=== PATIENT | female | born 1965 | race Caucasian/White ===

== ENCOUNTER 2018-09-28 09:42 | Outpatient (CLI) | payer MEDICARE, MEDICAID | END 2018-09-28 23:59 | disposition home or self-care (01) | LOC: WOU 09:42 | PROVIDERS: ATTEND Surgery | DX: S51.012A Laceration without foreign body of left elbow, initial encounter (principal); W19.XXXA Unspecified fall, initial encounter; Y92.89 Other specified places as the place of occurrence of the external cause; J44.9 Chronic obstructive pulmonary disease, unspecified; Z88.3 Allergy status to other anti-infective agents; Z88.2 Allergy status to sulfonamides; G89.4 Chronic pain syndrome; R26.2 Difficulty in walking, not elsewhere classified; L85.3 Xerosis cutis; E66.9 Obesity, unspecified; Z68.35 Body mass index [BMI] 35.0-35.9, adult; I87.303 Chronic venous hypertension (idiopathic) without complications of bilateral lower extremity | CPT/HCPCS: 11042; A6402 ==

== ENCOUNTER 2018-10-05 12:30 | Outpatient (CLI) | payer MEDICARE, MEDICAID | END 2018-10-05 23:59 | disposition home health service (06) | LOC: WOU 12:30 | PROVIDERS: ATTEND Surgery | DX: S51.012D Laceration without foreign body of left elbow, subsequent encounter (principal); W19.XXXD Unspecified fall, subsequent encounter; J44.9 Chronic obstructive pulmonary disease, unspecified; Z86.718 Personal history of other venous thrombosis and embolism; L84 Corns and callosities; I87.303 Chronic venous hypertension (idiopathic) without complications of bilateral lower extremity; E66.9 Obesity, unspecified; Z68.35 Body mass index [BMI] 35.0-35.9, adult | CPT/HCPCS: G0463 ==

== ENCOUNTER 2018-10-26 12:10 | Outpatient (CLI) | payer MEDICARE, MEDICAID | END 2018-10-26 23:59 | disposition home health service (06) | LOC: WOU 12:10 | PROVIDERS: ATTEND Surgery | DX: S51.012D Laceration without foreign body of left elbow, subsequent encounter (principal); W19.XXXD Unspecified fall, subsequent encounter; Z88.2 Allergy status to sulfonamides; F17.210 Nicotine dependence, cigarettes, uncomplicated; G89.4 Chronic pain syndrome; E66.09 Other obesity due to excess calories; L85.3 Xerosis cutis | CPT/HCPCS: G0463 ==

== ENCOUNTER 2019-05-07 08:50 | Outpatient (CLI) | payer MEDICARE, MEDICAID | END 2019-05-07 23:59 | disposition home health service (06) | LOC: WOU 08:50 | PROVIDERS: ATTEND Surgery | DX: S51.012A Laceration without foreign body of left elbow, initial encounter (principal); W18.30XA Fall on same level, unspecified, initial encounter; Y92.89 Other specified places as the place of occurrence of the external cause; I87.2 Venous insufficiency (chronic) (peripheral); R60.0 Localized edema; F17.200 Nicotine dependence, unspecified, uncomplicated | CPT/HCPCS: 11042; J3490 ==

== ENCOUNTER 2019-05-28 09:00 | Outpatient (CLI) | payer MEDICARE, MEDICAID | END 2019-05-28 23:59 | disposition home health service (06) | LOC: WOU 09:00 | PROVIDERS: ATTEND Surgery | DX: S51.012A Laceration without foreign body of left elbow, initial encounter (principal); W19.XXXA Unspecified fall, initial encounter; Y92.89 Other specified places as the place of occurrence of the external cause; I87.2 Venous insufficiency (chronic) (peripheral); R60.0 Localized edema; E66.9 Obesity, unspecified; Z68.33 Body mass index [BMI] 33.0-33.9, adult; F17.210 Nicotine dependence, cigarettes, uncomplicated; Z79.899 Other long term (current) drug therapy | CPT/HCPCS: 11042 ==

== ENCOUNTER 2019-08-13 08:55 | Outpatient (CLI) | payer MEDICARE, MEDICAID | END 2019-08-13 23:59 | disposition home health service (06) | LOC: WOU 08:55 | PROVIDERS: ATTEND Surgery | DX: L84 Corns and callosities (principal); I87.303 Chronic venous hypertension (idiopathic) without complications of bilateral lower extremity; F17.210 Nicotine dependence, cigarettes, uncomplicated; E66.9 Obesity, unspecified; Z68.33 Body mass index [BMI] 33.0-33.9, adult; Z79.899 Other long term (current) drug therapy | CPT/HCPCS: G0463 ==

== ENCOUNTER 2020-02-28 13:00 | Outpatient (CLI) | payer MEDICARE, MEDICAID ==
[2020-02-28] MEDS ORDERED: BACI/NEOM/POLY B OINT PKT 1 UDPKT PACKET ONE (13:48)
== END 2020-02-28 23:59 | disposition home health service (06) ==
LOC: WOU 13:00
PROVIDERS: ATTEND Surgery
DX: S51.012A Laceration without foreign body of left elbow, initial encounter (principal); X58.XXXA Exposure to other specified factors, initial encounter; Y92.89 Other specified places as the place of occurrence of the external cause; I87.2 Venous insufficiency (chronic) (peripheral); R60.0 Localized edema; E66.9 Obesity, unspecified; Z68.33 Body mass index [BMI] 33.0-33.9, adult; Z72.0 Tobacco use
CPT/HCPCS: 11042; 11045

== ENCOUNTER 2020-07-24 10:14 | Outpatient (CLI) | payer MEDICARE, MEDICAID ==
[2020-07-24 11:26] LABS: BILIRUBIN,URINE NEGATIVE (NEGATIVE); COLOR,URINE YELLOW (YELLOW); LEUKOCYTE ESTERASE ,URINE NEGATIVE (NEGATIVE); NITRITE, URINE NEGATIVE (NEGATIVE); PH,URINE 6.5 (5.0-8.0); PROTEIN,URINE NEGATIVE (NEGATIVE); UGLUCOSE NEGATIVE (NEGATIVE); UROBILINOGEN,URINE 0.2 EU/dL (0.2)
[2020-07-24 11:31] LABS: ALBUMIN 3.9 g/dL (3.4-5.0); BILIRUBIN,TOTAL 0.3 mg/dL (0.2-1.0); CALCIUM, SERUM 9.2 mg/dL (8.5-10.1); CREATININE 0.8 mg/dL (0.6-1.3); PHOSPHORUS 4.3 mg/dL (2.5-4.9); POTASSIUM 3.5 mmol/L (3.5-5.1); TOTAL PROTEIN, SERUM 7.3 g/dL (6.4-8.2)
[2020-07-24 11:37] LABS: BASOPHILS # (AUTO) 0.1 /CMM (0.0-0.2); BASOPHILS % (AUTO) 0.7 % (0.0-2.0); EOSINOPHILS % (AUTO) 2.8 % (0.0-6.0); HEMATOCRIT 41 % (33-45); HEMOGLOBIN 13.7 g/dL (11.5-14.8); LYMPHOCYTES # (AUTO) 2.8 /CMM (0.8-4.8); MEAN CORPUSCULAR HGB CONC 34 g/dl (31.0-36.0); MEAN CORPUSCULAR VOLUME 96 fL (82-100); MONOCYTES # (AUTO) 0.8 /CMM (0.1-1.30); MONOCYTES % (AUTO) 9.6 % (2.0-12.0); NEUTROPHILS # (AUTO) 4.4 /CMM (1.8-8.9); NEUTROPHILS % (AUTO) 52.9 % (43.0-81.0); PLATELET COUNT (AUTO) 269 /CMM (150-450); RED BLOOD CELL COUNT(AUTO) 4.22 MIL/uL (4.0-5.2); WHITE BLOOD COUNT (AUTO) 8.3 K/uL (4.3-11.0)
[2020-07-24 11:54] LABS: BACTERIA,URINE None seen /HPF (None Seen); RBC,URINE 0-2 /HPF (0-2); WBC,URINE NONE SEEN /HPF (0-3)
[2020-07-24 11:55] LABS: SQUAMOUS EPITHELIAL CELL,UR Few /HPF (None Seen)
== END 2020-07-24 23:59 | disposition home or self-care (01) ==
LOC: MSC 10:14
PROVIDERS: ATTEND Internal Medicine
DX: R22.43 Localized swelling, mass and lump, lower limb, bilateral (principal); J44.1 Chronic obstructive pulmonary disease with (acute) exacerbation; Z72.0 Tobacco use; R39.15 Urgency of urination; I87.2 Venous insufficiency (chronic) (peripheral); I10 Essential (primary) hypertension; K21.00 Gastro-esophageal reflux disease with esophagitis, without bleeding; M25.9 Joint disorder, unspecified; F43.12 Post-traumatic stress disorder, chronic; K59.00 Constipation, unspecified; Z79.891 Long term (current) use of opiate analgesic; Z79.52 Long term (current) use of systemic steroids; Z79.899 Other long term (current) drug therapy
CPT/HCPCS: 36415; 80053; 81001; 82043; 82570; 82607; 83036; 83735; 84100; 84155; 85025; G0463

== ENCOUNTER 2020-08-12 10:06 | Outpatient (CLI) | payer MEDICARE, MEDICAID | END 2020-08-12 23:59 | disposition home or self-care (01) | LOC: MSC 10:06 | PROVIDERS: ATTEND Internal Medicine | DX: J02.9 Acute pharyngitis, unspecified (principal); J44.1 Chronic obstructive pulmonary disease with (acute) exacerbation; Z79.51 Long term (current) use of inhaled steroids; Z79.52 Long term (current) use of systemic steroids; Z72.0 Tobacco use; R22.43 Localized swelling, mass and lump, lower limb, bilateral; I10 Essential (primary) hypertension; I87.2 Venous insufficiency (chronic) (peripheral); G89.4 Chronic pain syndrome; F43.12 Post-traumatic stress disorder, chronic; M25.9 Joint disorder, unspecified; K21.00 Gastro-esophageal reflux disease with esophagitis, without bleeding; F89 Unspecified disorder of psychological development; K59.00 Constipation, unspecified; R39.15 Urgency of urination; Z79.891 Long term (current) use of opiate analgesic ==

== ENCOUNTER 2020-08-26 11:14 | Outpatient (CLI) | payer MEDICARE, OTHER | END 2020-08-26 23:59 | disposition home or self-care (01) | LOC: MSC 11:14 | PROVIDERS: ATTEND Internal Medicine | DX: I10 Essential (primary) hypertension (principal); J02.9 Acute pharyngitis, unspecified; J44.1 Chronic obstructive pulmonary disease with (acute) exacerbation; Z72.0 Tobacco use; I87.2 Venous insufficiency (chronic) (peripheral); G89.4 Chronic pain syndrome; F43.12 Post-traumatic stress disorder, chronic; M25.9 Joint disorder, unspecified; K21.00 Gastro-esophageal reflux disease with esophagitis, without bleeding; F89 Unspecified disorder of psychological development; K59.00 Constipation, unspecified; R39.15 Urgency of urination; Z79.2 Long term (current) use of antibiotics; Z79.52 Long term (current) use of systemic steroids; Z79.51 Long term (current) use of inhaled steroids; Z79.891 Long term (current) use of opiate analgesic; Z79.899 Other long term (current) drug therapy ==

== ENCOUNTER 2021-03-03 11:30 | Outpatient (CLI) | payer MEDICARE, OTHER | END 2021-03-03 23:59 | disposition home or self-care (01) | LOC: MSC 11:30 | PROVIDERS: ATTEND Internal Medicine | DX: R60.0 Localized edema (principal); I10 Essential (primary) hypertension; I87.2 Venous insufficiency (chronic) (peripheral); J44.1 Chronic obstructive pulmonary disease with (acute) exacerbation; G89.4 Chronic pain syndrome; F43.12 Post-traumatic stress disorder, chronic; M25.9 Joint disorder, unspecified; K21.00 Gastro-esophageal reflux disease with esophagitis, without bleeding; F89 Unspecified disorder of psychological development; K59.00 Constipation, unspecified; R39.15 Urgency of urination; Z79.891 Long term (current) use of opiate analgesic; Z79.52 Long term (current) use of systemic steroids; Z79.899 Other long term (current) drug therapy ==

== ENCOUNTER → 2021-05-26 | Outpatient (CLI) | payer MEDICARE, OTHER | END | disposition home or self-care (01) | LOC: MSC 12:00 | PROVIDERS: ATTEND Internal Medicine | DX: R68.89 Other general symptoms and signs (principal); R60.0 Localized edema; I10 Essential (primary) hypertension; I87.2 Venous insufficiency (chronic) (peripheral); J44.1 Chronic obstructive pulmonary disease with (acute) exacerbation; Z79.52 Long term (current) use of systemic steroids; G89.4 Chronic pain syndrome; M25.9 Joint disorder, unspecified; Z79.891 Long term (current) use of opiate analgesic; F43.12 Post-traumatic stress disorder, chronic; K21.9 Gastro-esophageal reflux disease without esophagitis; F89 Unspecified disorder of psychological development; K59.00 Constipation, unspecified; R39.15 Urgency of urination; Z79.899 Other long term (current) drug therapy ==

== ENCOUNTER → 2021-06-01 | Outpatient (CLI) | payer MEDICARE, OTHER | END | disposition home or self-care (01) | LOC: MSC 11:00 | PROVIDERS: ATTEND Internal Medicine | DX: J44.1 Chronic obstructive pulmonary disease with (acute) exacerbation (principal); Z79.51 Long term (current) use of inhaled steroids; I10 Essential (primary) hypertension; I87.2 Venous insufficiency (chronic) (peripheral); G89.4 Chronic pain syndrome; Z79.891 Long term (current) use of opiate analgesic; F43.12 Post-traumatic stress disorder, chronic; M25.9 Joint disorder, unspecified; K21.00 Gastro-esophageal reflux disease with esophagitis, without bleeding; F89 Unspecified disorder of psychological development; K59.00 Constipation, unspecified; R39.15 Urgency of urination; Z79.899 Other long term (current) drug therapy ==

== ENCOUNTER 2021-06-08 13:00 | Outpatient (CLI) | payer MEDICARE, OTHER | END 2021-06-08 23:59 | disposition home or self-care (01) | LOC: MSC 13:00 | PROVIDERS: ATTEND Internal Medicine | DX: J44.1 Chronic obstructive pulmonary disease with (acute) exacerbation (principal); Z79.51 Long term (current) use of inhaled steroids; Z79.52 Long term (current) use of systemic steroids; R68.83 Chills (without fever); R60.0 Localized edema; I10 Essential (primary) hypertension; I87.2 Venous insufficiency (chronic) (peripheral); G89.4 Chronic pain syndrome; Z79.891 Long term (current) use of opiate analgesic; F43.12 Post-traumatic stress disorder, chronic; M25.9 Joint disorder, unspecified; K21.00 Gastro-esophageal reflux disease with esophagitis, without bleeding; F89 Unspecified disorder of psychological development; K59.00 Constipation, unspecified; R39.15 Urgency of urination; Z79.899 Other long term (current) drug therapy ==

== ENCOUNTER → 2021-06-17 | Outpatient (CLI) | payer MEDICARE, OTHER | END | disposition home or self-care (01) | LOC: MSC 14:30 | PROVIDERS: ATTEND Internal Medicine | DX: J44.1 Chronic obstructive pulmonary disease with (acute) exacerbation (principal); Z79.51 Long term (current) use of inhaled steroids; Z79.52 Long term (current) use of systemic steroids; R60.0 Localized edema; I10 Essential (primary) hypertension; I87.2 Venous insufficiency (chronic) (peripheral); G89.4 Chronic pain syndrome; M25.9 Joint disorder, unspecified; Z79.891 Long term (current) use of opiate analgesic; F43.12 Post-traumatic stress disorder, chronic; K21.00 Gastro-esophageal reflux disease with esophagitis, without bleeding; F89 Unspecified disorder of psychological development; K59.00 Constipation, unspecified; R39.15 Urgency of urination; Z79.899 Other long term (current) drug therapy ==

== ENCOUNTER 2021-07-01 15:00 | Outpatient (CLI) | payer MEDICARE, OTHER | END 2021-07-01 23:59 | disposition home or self-care (01) | LOC: MSC 15:00 | PROVIDERS: ATTEND Internal Medicine | DX: J44.1 Chronic obstructive pulmonary disease with (acute) exacerbation (principal); Z79.51 Long term (current) use of inhaled steroids; Z79.52 Long term (current) use of systemic steroids; I10 Essential (primary) hypertension; I87.2 Venous insufficiency (chronic) (peripheral); G89.4 Chronic pain syndrome; M25.9 Joint disorder, unspecified; Z79.891 Long term (current) use of opiate analgesic; F43.12 Post-traumatic stress disorder, chronic; K21.00 Gastro-esophageal reflux disease with esophagitis, without bleeding; F89 Unspecified disorder of psychological development; K59.00 Constipation, unspecified; R39.15 Urgency of urination; Z79.899 Other long term (current) drug therapy ==

== ENCOUNTER 2021-07-17 14:00 | Outpatient (CLI) | payer MEDICARE, OTHER | END 2021-07-17 23:59 | disposition home or self-care (01) | LOC: MSC 14:00 | PROVIDERS: ATTEND Internal Medicine | DX: J44.1 Chronic obstructive pulmonary disease with (acute) exacerbation (principal); J45.901 Unspecified asthma with (acute) exacerbation; Z79.51 Long term (current) use of inhaled steroids; Z79.52 Long term (current) use of systemic steroids; I10 Essential (primary) hypertension; I87.2 Venous insufficiency (chronic) (peripheral); G89.4 Chronic pain syndrome; F43.12 Post-traumatic stress disorder, chronic; M25.9 Joint disorder, unspecified; Z79.891 Long term (current) use of opiate analgesic; K21.00 Gastro-esophageal reflux disease with esophagitis, without bleeding; F89 Unspecified disorder of psychological development; K59.00 Constipation, unspecified; R39.15 Urgency of urination; Z79.899 Other long term (current) drug therapy ==

== ENCOUNTER → 2021-08-18 | Outpatient (CLI) | payer MEDICARE, OTHER | END | disposition home or self-care (01) | LOC: MSC 11:30 | PROVIDERS: ATTEND Internal Medicine | DX: J44.1 Chronic obstructive pulmonary disease with (acute) exacerbation (principal); J45.901 Unspecified asthma with (acute) exacerbation; Z79.51 Long term (current) use of inhaled steroids; Z79.52 Long term (current) use of systemic steroids; I10 Essential (primary) hypertension; I87.2 Venous insufficiency (chronic) (peripheral); G89.4 Chronic pain syndrome; F43.12 Post-traumatic stress disorder, chronic; M25.9 Joint disorder, unspecified; K21.00 Gastro-esophageal reflux disease with esophagitis, without bleeding; F89 Unspecified disorder of psychological development; K59.00 Constipation, unspecified; R39.15 Urgency of urination; Z79.899 Other long term (current) drug therapy ==

== ENCOUNTER → 2021-09-30 | Outpatient (CLI) | payer MEDICARE, OTHER | END | disposition home or self-care (01) | LOC: MSC 14:30 | PROVIDERS: ATTEND Internal Medicine | DX: J44.1 Chronic obstructive pulmonary disease with (acute) exacerbation (principal); J45.901 Unspecified asthma with (acute) exacerbation; I10 Essential (primary) hypertension; I87.2 Venous insufficiency (chronic) (peripheral); G89.4 Chronic pain syndrome; F43.12 Post-traumatic stress disorder, chronic; M25.9 Joint disorder, unspecified; K21.00 Gastro-esophageal reflux disease with esophagitis, without bleeding; F89 Unspecified disorder of psychological development; K59.00 Constipation, unspecified; R39.15 Urgency of urination; Z79.899 Other long term (current) drug therapy ==

== ENCOUNTER 2021-10-13 09:07 | Outpatient (CLI) | payer MEDICARE, OTHER | END 2021-10-13 23:59 | disposition home or self-care (01) | LOC: MSC 09:07 | PROVIDERS: ATTEND Anesthesiology | DX: G89.4 Chronic pain syndrome (principal); M54.50 Low back pain, unspecified; F11.20 Opioid dependence, uncomplicated; M79.606 Pain in leg, unspecified ==

== ENCOUNTER → 2021-10-15 | Outpatient (CLI) | payer MEDICARE, OTHER | END | disposition home or self-care (01) | LOC: MSC 09:30 | PROVIDERS: ATTEND Internal Medicine | DX: R19.7 Diarrhea, unspecified (principal); G89.4 Chronic pain syndrome; M54.50 Low back pain, unspecified; I10 Essential (primary) hypertension; J44.1 Chronic obstructive pulmonary disease with (acute) exacerbation; I87.2 Venous insufficiency (chronic) (peripheral); F43.12 Post-traumatic stress disorder, chronic; M25.9 Joint disorder, unspecified; K21.00 Gastro-esophageal reflux disease with esophagitis, without bleeding; F89 Unspecified disorder of psychological development; K59.00 Constipation, unspecified; R39.15 Urgency of urination; Z79.899 Other long term (current) drug therapy ==

== ENCOUNTER → 2021-10-22 | Outpatient (CLI) | payer MEDICARE, OTHER | END | disposition home or self-care (01) | LOC: MSC 10:45 | PROVIDERS: ATTEND Internal Medicine | DX: Z09 Encounter for follow-up examination after completed treatment for conditions other than malignant neoplasm (principal); G89.4 Chronic pain syndrome; M54.50 Low back pain, unspecified; I10 Essential (primary) hypertension; J44.1 Chronic obstructive pulmonary disease with (acute) exacerbation; I87.2 Venous insufficiency (chronic) (peripheral); F43.12 Post-traumatic stress disorder, chronic; M25.9 Joint disorder, unspecified; K21.00 Gastro-esophageal reflux disease with esophagitis, without bleeding; F89 Unspecified disorder of psychological development; K59.00 Constipation, unspecified; R39.15 Urgency of urination ==

== ENCOUNTER → 2021-10-28 | Outpatient (CLI) | payer MEDICARE, OTHER | END | disposition home or self-care (01) | LOC: MSC 16:00 | PROVIDERS: ATTEND Internal Medicine | DX: R60.0 Localized edema (principal); R19.7 Diarrhea, unspecified; G89.4 Chronic pain syndrome; M54.50 Low back pain, unspecified; I10 Essential (primary) hypertension; J44.1 Chronic obstructive pulmonary disease with (acute) exacerbation; I87.2 Venous insufficiency (chronic) (peripheral); F43.12 Post-traumatic stress disorder, chronic; M25.9 Joint disorder, unspecified; K21.00 Gastro-esophageal reflux disease with esophagitis, without bleeding; F89 Unspecified disorder of psychological development; K59.00 Constipation, unspecified; R39.15 Urgency of urination; Z79.891 Long term (current) use of opiate analgesic ==

== ENCOUNTER 2022-05-04 15:00 | Outpatient (CLI) | payer MEDICARE, OTHER | END 2022-05-04 23:59 | disposition home or self-care (01) | LOC: MSC 15:00 | PROVIDERS: ATTEND Internal Medicine | DX: J20.9 Acute bronchitis, unspecified (principal); J44.0 Chronic obstructive pulmonary disease with (acute) lower respiratory infection; R60.0 Localized edema; G89.4 Chronic pain syndrome; M54.50 Low back pain, unspecified; I10 Essential (primary) hypertension; I87.2 Venous insufficiency (chronic) (peripheral); F43.12 Post-traumatic stress disorder, chronic; M25.9 Joint disorder, unspecified; K21.00 Gastro-esophageal reflux disease with esophagitis, without bleeding; F89 Unspecified disorder of psychological development; K59.00 Constipation, unspecified; R39.15 Urgency of urination ==

== ENCOUNTER 2022-05-05 15:00 | Outpatient (CLI) | payer MEDICARE, OTHER | END 2022-05-05 23:59 | disposition home or self-care (01) | LOC: MSC 15:00 | PROVIDERS: ATTEND Internal Medicine | DX: J20.9 Acute bronchitis, unspecified (principal); J44.0 Chronic obstructive pulmonary disease with (acute) lower respiratory infection; R60.0 Localized edema; G89.4 Chronic pain syndrome; M54.50 Low back pain, unspecified; I10 Essential (primary) hypertension; I87.2 Venous insufficiency (chronic) (peripheral); F43.12 Post-traumatic stress disorder, chronic; M25.9 Joint disorder, unspecified; K21.00 Gastro-esophageal reflux disease with esophagitis, without bleeding; F89 Unspecified disorder of psychological development; K59.00 Constipation, unspecified; R39.15 Urgency of urination ==

== ENCOUNTER → 2022-05-26 | Outpatient (CLI) | payer MEDICARE, OTHER | END | disposition home or self-care (01) | LOC: MSC 14:30 | PROVIDERS: ATTEND Internal Medicine | DX: J20.9 Acute bronchitis, unspecified (principal); J44.0 Chronic obstructive pulmonary disease with (acute) lower respiratory infection; R60.0 Localized edema; G89.4 Chronic pain syndrome; M54.50 Low back pain, unspecified; I10 Essential (primary) hypertension; I87.2 Venous insufficiency (chronic) (peripheral); F43.12 Post-traumatic stress disorder, chronic; M25.9 Joint disorder, unspecified; K21.00 Gastro-esophageal reflux disease with esophagitis, without bleeding; F89 Unspecified disorder of psychological development; K59.00 Constipation, unspecified; R39.15 Urgency of urination ==

== ENCOUNTER → 2022-10-19 | Outpatient (CLI) | payer MEDICARE, OTHER | END | disposition home or self-care (01) | LOC: MSC 14:30 | PROVIDERS: ATTEND Internal Medicine | DX: M54.9 Dorsalgia, unspecified (principal); M54.10 Radiculopathy, site unspecified; G89.4 Chronic pain syndrome; Z79.891 Long term (current) use of opiate analgesic; R60.0 Localized edema; I10 Essential (primary) hypertension; I87.2 Venous insufficiency (chronic) (peripheral); F43.12 Post-traumatic stress disorder, chronic; M25.859 Other specified joint disorders, unspecified hip; K21.00 Gastro-esophageal reflux disease with esophagitis, without bleeding; F89 Unspecified disorder of psychological development; K59.00 Constipation, unspecified; R39.15 Urgency of urination; J44.0 Chronic obstructive pulmonary disease with (acute) lower respiratory infection ==

== ENCOUNTER 2022-12-02 09:15 | Outpatient (CLI) | payer MEDICARE, OTHER | END 2022-12-02 23:59 | disposition home or self-care (01) | LOC: MSC 09:15 | PROVIDERS: ATTEND Internal Medicine | DX: M95.2 Other acquired deformity of head (principal); J20.9 Acute bronchitis, unspecified; J44.9 Chronic obstructive pulmonary disease, unspecified; M54.9 Dorsalgia, unspecified; M54.10 Radiculopathy, site unspecified; G89.4 Chronic pain syndrome; Z79.891 Long term (current) use of opiate analgesic; M25.859 Other specified joint disorders, unspecified hip; R60.0 Localized edema; I10 Essential (primary) hypertension; I87.2 Venous insufficiency (chronic) (peripheral); F43.12 Post-traumatic stress disorder, chronic; K21.00 Gastro-esophageal reflux disease with esophagitis, without bleeding; F89 Unspecified disorder of psychological development; K59.00 Constipation, unspecified; R39.15 Urgency of urination ==

== ENCOUNTER 2024-02-16 11:30 | Outpatient (CLI) | payer MEDICARE, OTHER | END 2024-02-16 23:59 | disposition home or self-care (01) | LOC: MSC 11:30 | PROVIDERS: ATTEND Internal Medicine | DX: D72.829 Elevated white blood cell count, unspecified (principal); E11.9 Type 2 diabetes mellitus without complications; Z79.84 Long term (current) use of oral hypoglycemic drugs; M10.9 Gout, unspecified; R60.0 Localized edema; L53.9 Erythematous condition, unspecified; R05.3 Chronic cough; Z87.01 Personal history of pneumonia (recurrent); J20.9 Acute bronchitis, unspecified; J44.0 Chronic obstructive pulmonary disease with (acute) lower respiratory infection; I10 Essential (primary) hypertension; I87.2 Venous insufficiency (chronic) (peripheral); R44.0 Auditory hallucinations; E83.39 Other disorders of phosphorus metabolism; K21.00 Gastro-esophageal reflux disease with esophagitis, without bleeding; K59.00 Constipation, unspecified; R39.15 Urgency of urination; G89.4 Chronic pain syndrome ==

== ENCOUNTER 2024-02-17 14:45 | Outpatient (CLI) | payer MEDICARE, OTHER | END 2024-02-17 23:59 | disposition home or self-care (01) | LOC: MSC 14:45 | PROVIDERS: ATTEND Internal Medicine | DX: R04.2 Hemoptysis (principal); R05.3 Chronic cough; Z87.01 Personal history of pneumonia (recurrent); J20.9 Acute bronchitis, unspecified; J44.0 Chronic obstructive pulmonary disease with (acute) lower respiratory infection; R60.0 Localized edema; L53.9 Erythematous condition, unspecified; E11.9 Type 2 diabetes mellitus without complications; Z79.84 Long term (current) use of oral hypoglycemic drugs; I10 Essential (primary) hypertension; M10.9 Gout, unspecified; D72.829 Elevated white blood cell count, unspecified; I87.2 Venous insufficiency (chronic) (peripheral); R44.0 Auditory hallucinations; E83.39 Other disorders of phosphorus metabolism; K21.00 Gastro-esophageal reflux disease with esophagitis, without bleeding; K59.00 Constipation, unspecified; G89.4 Chronic pain syndrome ==